=== PATIENT | female | born 2000 | race American Indian/Alaskan Native ===

== ENCOUNTER 2020-11-05 20:33 | Emergency (ER) | payer SELFPAY | END 2020-11-05 22:30 | disposition left against medical advice (07) | LOC: ED 20:33 | DX: Z53.21 Procedure and treatment not carried out due to patient leaving prior to being seen by health care provider (principal) ==

== ENCOUNTER 2021-12-01 15:43 | Emergency (ER) | payer SELFPAY ==
[2021-12-01 21:40] VITALS: BP 121/78
[2021-12-01] MEDS ORDERED: oxyCODONE /ACETAMINOPHEN 5-325MG TAB PO ONE (21:42)
== END 2021-12-01 21:40 | disposition home or self-care (01) ==
LOC: ED 15:43
DX: K04.7 Periapical abscess without sinus (principal); Z53.21 Procedure and treatment not carried out due to patient leaving prior to being seen by health care provider